=== PATIENT | female | born 1960 | race American Indian/Alaskan Native ===

== ENCOUNTER 2018-04-20 19:09 | Emergency (ER) | payer OTHER ==
[~2018-04-20] VITALS: Ht 165.1 cm; Wt 81.2 kg
[2018-04-20] MEDS ORDERED: COZAAR50 MG PO (19:19)
[2018-04-20] MEDS ORDERED: METFORMIN HCL500 MG PO (19:19)
[2018-04-20] MEDS ORDERED: GLIPIZIDE5 MG PO (19:19)
== END 2018-04-20 19:58 | disposition home or self-care (01) ==
LOC: ED 19:09
PROC: 0HQFXZZ Repair Right Hand Skin, External Approach (ICD-10-PCS; principal; 2018-04-20)
DX: S61.214A Laceration without foreign body of right ring finger without damage to nail, initial encounter (principal); E11.9 Type 2 diabetes mellitus without complications; I10 Essential (primary) hypertension; Z79.899 Other long term (current) drug therapy; Z79.84 Long term (current) use of oral hypoglycemic drugs; W25.XXXA Contact with sharp glass, initial encounter
CPT/HCPCS: 12001; 90471; 90715; 99282

== ENCOUNTER 2023-04-21 14:25 | Emergency (ER) | payer OTHER ==
[~2023-04-21] VITALS: Ht 165.1 cm; Wt 62.4 kg
[~2023-04-21 14:25] MED LIST: COZAAR50 MG PO; GLIPIZIDE5 MG PO; METFORMIN HCL500 MG PO
[2023-04-21 15:11] VITALS: BP 148/98
== END 2023-04-21 15:12 | disposition home or self-care (01) ==
LOC: ED 14:25
DX: S61.411A Laceration without foreign body of right hand, initial encounter (principal); W26.8XXA Contact with other sharp object(s), not elsewhere classified, initial encounter; I10 Essential (primary) hypertension; E11.9 Type 2 diabetes mellitus without complications; Z79.84 Long term (current) use of oral hypoglycemic drugs; Z79.899 Other long term (current) drug therapy
CPT/HCPCS: 99282

== ENCOUNTER 2023-04-25 01:16 | Emergency (ER) | payer OTHER ==
[~2023-04-25] VITALS: Ht 165.1 cm; Wt 68.0 kg
--- OUTSIDE RECORDS SUMMARY | ~2023-04-25 | XMS | Continuity of Care Document ---
Demographics + + + | Address | [address] [place] [address] | | | [place] [id number] | + + + | Preferred Language | Unknown | + + + | Marital Status | Never | + + + | Nondenominational Affiliation | Unknown | + + + | Race | or | + + + | Ethnic Group | Not or | + + + Author + + + | Author | [facility] | + + + | Organization | [facility] | + + + | Address | [address] | | | [place] [address] | + + + | Phone | | + + + Care Team Providers + + + + | Care Power Tool Repairer Name | Role | Phone | + + + + Unavailable | Unavailable | + + + + Unavailable | Unavailable | + + + + Allergies and Intolerances + + + + + | date | description | facility | type | + + + + + | (no date) | No Known Allergies | SAH | (unknown) | | | | | | + + + + + Encounters No information. Functional Status No information. Immunizations + + + + | date | description | facility | + + + + | 2018-04-20 00:00 | Tdap | [facility] | + + + + Medications + + + + | date | description | facility | + + + + | 2023-04-21 00:00 | GLIPIZIDE | [facility] | + + + + | 2023-04-21 00:00 | METFORMIN HCL | [facility] | + + + + | 2023-04-21 00:00 | LOSARTAN POTASSIUM | [facility] | + + + + Problems + + + + | date | description | facility | + + + + | 2018-04-20 00:00 | Laceration of right ring | [facility] | | | finger | | + + + + | 2023-04-21 00:00 | Laceration of right hand | [facility] | + + + + Procedures No information. Results/Labs No information. Social History No information. Vital Signs + + + +---------+ | date | measurement | value | units | + + + +---------+ | 2023-04-21 00:00 | BMI | 22.9 | kg/m2 | + + + +---------+ | 2023-04-21 00:00 | BP_diastolic | 98 | mmHg | + + + +---------+ | 2023-04-21 00:00 | BP_systolic | 148 | mmHg | + + + +---------+ | 2023-04-21 00:00 | heart_rate | 99 | /min | + + + +---------+ | 2023-04-21 00:00 | height_metric | 165.1 | cm | + + + +---------+ | 2023-04-21 00:00 | height_standard | 65 | in | + + + +---------+ | 2023-04-21 00:00 | o2_saturation | 100 | % | + + + +---------+ | 2023-04-21 00:00 | respiration_rate | 16 | /min | + + + +---------+ | 2023-04-21 00:00 | temperature_metric | 36.67 | C | | | | | | + + + +---------+ | 2023-04-21 00:00 | | 98 | F | | | temperature_standar | | | | | d | | | + + + +---------+ | 2023-04-21 00:00 | weight_metric | 62.4 | kg | + + + +---------+ | 2023-04-21 00:00 | weight_standard | 137.57 | lb | + + + +---------+"
--- OUTSIDE RECORDS SUMMARY | ~2023-04-25 | XMS | Continuity of Care Document ---
Demographics + + + | Address | [address] [place] [address] | | | [place] [address] | + + + | Preferred Language | Unknown | + + + | Marital Status | Never | + + + | Mandaeism Affiliation | Unknown | + + + | Race | or | + + + | Ethnic Group | Not or | + + + Author + + + | Author | [facility] | + + + | Organization | [facility] | + + + | Address | [address] | | | [place] [address] | + + + | Phone | | + + + Care Team Providers + + + + | Care Joint Cutter Name | Role | Phone | + [...] + | 2018-04-20 00:00 | Tdap | [facility] | + + + + Medications + + + + | date | description | facility | + + + + | 2023-04-21 00:00 | GLIPIZIDE | [facility] | + + + + | 2023-04-21 00:00 | METFORMIN HCL | [facility] | + + + + | 2023-04-21 00:00 | LOSARTAN POTASSIUM | [facility] | + + + + Problems + + + + | date | description | facility | + + + + | 2018-04-20 00:00 | Laceration of right ring | [facility] | | | finger | | + + + + | 2023-04-21 00:00 | Laceration of right hand | [facility] | + + + + Procedures No [...]
--- OUTSIDE RECORDS SUMMARY | 2023-04-25 01:20 | XMS ---
PreManage Notification: JAZZY TRAN Security Transformation Analyst Events No recent Security Events currently on file CRITERIA MET - [facility] - 2 Visits in 30 Days CARE PROVIDERS There are no care providers on record at this time. Lorin has no Care Guidelines for this patient. Fadumo VISIT COUNT (12 MO.) 2 [facility] TOTAL 2 NOTE: Visits indicate total known visits. ED/UCC VISIT TRACKING (12 MO.) [facility] COMPLAINT: - POSS UTI 04/21/2023 14:26 [facility] [place] TYPE: Emergency COMPLAINT: - R HAND LACERATION INPATIENT VISIT TRACKING (12 MO.) No inpatient visits to display in this time frame [email or web address]
[2023-04-25] MEDS ORDERED: CYCLOBENZAPRINE10 MG PO (03:01)
[2023-04-25] MEDS ORDERED: ONDANSETRON ODT8 MG PO (03:01)
[2023-04-25 04:23] VITALS: BP 130/76
== END 2023-04-25 03:45 | disposition home or self-care (01) ==
LOC: ED 01:16
DX: K52.9 Noninfective gastroenteritis and colitis, unspecified (principal); I10 Essential (primary) hypertension; E11.9 Type 2 diabetes mellitus without complications; Z79.84 Long term (current) use of oral hypoglycemic drugs; Z79.899 Other long term (current) drug therapy
CPT/HCPCS: 36415; 74018; 80053; 81001; 85025; 96361; 96374; 99284 25; A9270; J2405; J7121

== ENCOUNTER 2023-07-22 15:21 | Inpatient (IN) | payer OTHER ==
[~2023-07-22] VITALS: Ht 165.1 cm; Wt 66.4 kg
[~2023-07-22 15:21] MED LIST changes: +CYCLOBENZAPRINE10 MG PO; +GLIPIZIDE XL10 MG PO; -GLIPIZIDE5 MG PO; +METFORMIN HCL1000 MG PO; -METFORMIN HCL500 MG PO; +ONDANSETRON ODT8 MG PO
[2023-07-22 15:51] LABS: BASOPHILS 0.5 % (0-2); EOSINOPHILS 0.6 % (0-6); HEMOGLOBIN 12.1 g/dL (12.0-18.0); LYMPHOCYTES 3.1 % (24-44); MCH 29.9 (27-36); MCHC 33.5 g/dl (30-36); MCV 89.3 fl (81-99); MONOCYTES 6.3 % (0-12); NEUTROPHILS 89.5 % (39-80); PLATELET COUNT 94 K/uL (140-440); RBC 4.03 M/ul (4.3-5.7); RDW 13.4 (10.5-15.0)
[2023-07-22 16:08] LABS: LACTIC ACID, BLOOD 2.3 mmol/L (0.4-2.0)
[2023-07-22 16:10] LABS: ALBUMIN 2.2 g/dL (3.4-5.0); ALBUMIN/GLOBULIN RATIO 0.46 (1.1-2.4); ANION GAP 14.1 (7-21); BILIRUBIN, TOTAL 0.8 ng/dL (0.2-1.0); BUN/CREATININE RATIO 17.07 (6.0-28.6); CALCIUM 8.4 mg/dL (8.5-10.1); CREATININE, SERUM 1.64 mg/dL (0.55-1.02); POTASSIUM 3.1 mmol/L (3.5-5.1)
[2023-07-22 16:18] LABS: INFLUENZA B NAA NEGATIVE (NEGATIVE); RESPIRATORY SYNCYTIAL VIR NAA NEGATIVE (NEGATIVE)
[2023-07-22 18:15] LABS: BILIRUBIN, URINE NEGATIVE (negative); BLOOD/HGB, URINE LARGE (Negative); KETONE, URINE NEGATIVE (Negative); LEUK ESTERASE, URINE TRACE (negative); NITRITE, URINE POSITIVE (negative)
[2023-07-22 18:22] LABS: BACTERIA, URINE 1+ /hpf (negative); CASTS, URINE NONE SEEN \\lpf; COLLECTION TYPE, URINE CLEAN CATCH; CRYSTALS, URINE NONE SEEN (0-1+); EPITHELIAL CELLS, URINE SQUAMOUS 1+ /lpf (0-1+); REFLEX CULTURE, URINE Yes (No); WHITE BLOOD CELLS, URINE 21-40 /HPF (0-5)
--- NOTE | 2023-07-22 19:45 | NUR ---
pt ARRIVED TO [facility] FLOOR, BROUGHT TO FLOOR BY CARMINE HARRIS. pt ORINETED TO ROOM, VS COLLECTED AND CHARTED. PRIMARY RN RAJESH IN ROOM RECEIVING REPORT. IV SITES X2 WNL, SALINE LOCKED. pt ORIENTED TO ROOM, CALL LIGHT IN REACH.
[2023-07-22 19:46] VITALS: BP 131/70
--- NOTE | 2023-07-22 20:00 | NUR ---
pt here from ER, scooted over to bed, vitals taken, hot broth provided, RN in to complete admission
[2023-07-23 02:41] VITALS: BP 149/81
[2023-07-23 04:35] LABS: BASOPHILS 0.6 % (0-2); BUN/CREATININE RATIO 23.52 (6.0-28.6); CALCIUM 7.9 mg/dL (8.5-10.1); CREATININE, SERUM 1.19 mg/dL (0.55-1.02); EOSINOPHILS 0.6 % (0-6); HEMATOCRIT 31.7 % (35.0-50.0); HEMOGLOBIN 10.7 g/dL (12.0-18.0); LYMPHOCYTES 2.8 % (24-44); MCH 29.5 (27-36); MCHC 33.8 g/dl (30-36); MCV 87.5 fl (81-99); MONOCYTES 6.9 % (0-12); NEUTROPHILS 89.1 % (39-80); PLATELET COUNT 90 K/uL (140-440); RBC 3.63 M/ul (4.3-5.7); RDW 13.8 (10.5-15.0)
[2023-07-23 04:47] VITALS: BP 137/78
--- NOTE | 2023-07-23 04:48 | NUR ---
IN TO ASSIST PT TO THE TOILET, SBA WITH IV POLE, BACK TO BED, VS TAKEN
--- NOTE | 2023-07-23 06:23 | NUR ---
MAG ADD ON SHOWS MAGNESIUM RESULT OF 1.8. CALL MADE TO DR DE LEON, TELEPHONE ORDER READ BACK TO GIVE 1 GRAM MAGNESIUM RIDER NOW. PRIMARY RN MADE AWARE. THIS RN TO PLACE ORDER.
--- NOTE | 2023-07-23 07:07 | NUR ---
VERBAL REPORT RECEIVED FROM CARMINE MENA.
--- NOTE | 2023-07-23 07:28 | NUR ---
PT RESTS IN BED AWAKE, RESP EVEN AND UNLABORED, NO REQUESTS AT THIS TIME.
--- NOTE | 2023-07-23 07:33 | NUR ---
REPORT GIVEN TO DAY SHIFT RN. PT RESTING COMFORTABLY IN BED. BREATHING EVEN AND UNLABORED. CALL LIGHT WITHIN REACH. IV FLUIDS INFUSING. SAFETY PRECAUTIONS IN PLACE.
--- NOTE | 2023-07-23 07:36 | NUR ---
spoke to leela in pharmacy regarding magnesium rider, leela to update order and dc original order. pt to receive 1 gram magnesium rider once. primary rn brandon updated and made aware.
--- NOTE | 2023-07-23 08:06 | NUR ---
PT REPORTS 5/10 STOMACH PAIN, CRAMPING. REPORTS SHE IS HUNGRY. DISCUSSED WITH PT THAT A MEAL WAS SCHEDULED TO ARRIVE ANY TIME NOW.
--- NOTE | 2023-07-23 08:46 | NUR ---
IV TO LEFT HAND PAINFUL AND NOT PATENT. IV REMOVED, TIP INTACT, GAUZE AND COBAN DRESSING APPLIED TO SITE. PT TOLERATED WELL. PT AMBULATES WITH STANDBY ASSIST FOR TUBING. PT UP TO TOILET, PASSES LIQUID BM AND SLIGHTLY CLOUDY YELLOW URINE. PT TO RECLINER, MEAL DELIVERED TO PT ROOM, PT EATS. CALL LIGHT IN REACH, NO REQUESTS AT THIS TIME.
--- NOTE | 2023-07-23 09:02 | NUR ---
PATIENT SITTING UP IN RECLINER, EATING BREAKFAST. STATES SHE LIVES IN [place] BUT HAS A RAMP TO GET IN. LIVES ALONE. STATES SHE STILL DRIVES AND HAS NO ISSUES WITH DRIVING. NO DME. STATES SHE DOES NOT HAVE ANY FINANCIAL HARDSHIP. NO ISSUES OBTAINING FOOD OR MEDICTIONS. DENIES NEEDS AT THIS TIME.
--- NOTE | 2023-07-23 09:18 | NUR ---
PT BACK TO BED. EATS ONLY 25% OF BREAKFAST, DENIES NAUSEA. REPORTS HER STOMACH PAIN HAS IMPROVED TO 4/10. ICE WATER PROVIDED PER PT REQUEST. PHYSCIAL ASSESSMENT COMPLETE. TEMPERATURE 99.2F, UP FROM 99F AT 0447.
--- NOTE | 2023-07-23 09:37 | NUR ---
PT REPORTS HEADACHE 02/24, REQUESTS TYLENOL, RECEIVED. ICE PACK PROVIDED PER PT REQUEST. ICE PACK TO FOREHEAD.
[2023-07-23 10:12] VITALS: BP 129/66
--- NOTE | 2023-07-23 10:23 | NUR ---
1017 - WATER TEAM LEADER REPORTS PT'S TEMPERATURE IS 100.2F. DR. DE LEON NOTIFIED VIA PHONE. NEW ORDER RECEIVED TO REPEAT TYLENOL DOSE NOW.
--- NOTE | 2023-07-23 11:07 | NUR ---
EXERCISED MINISTRY OF PRESENCE PT TALKED OF SON AND IMMINENT MEMORIAL SERVICE. PT IS HOPEFUL THAT SHE WILL BE ABLE TO ATTEND SERVICE TOMORROW AFTERNOON. PT CONSENTED TO PRAYER. PRAYED FOR AWARENESS OF DIVINE PRESENCE AND PEACE AND COMFORT.
[2023-07-23] MEDS ORDERED: AVAPRO300 MG PO (11:15)
[2023-07-23] MEDS ORDERED: VITAMIN D350 MCG PO (11:16)
--- NOTE | 2023-07-23 11:19 | NUR ---
PT TEMPERATURE RE-CHECKED, NOW 98.0F.
--- NOTE | 2023-07-23 12:16 | EKG ---
[facility] [address] [facility] [place], [place] [address] Signed Suspect arm lead reversal, interpretation assumes no reversal Sinus tachycardia with frequent premature ventricular complexes Lateral infarct , age undetermined Inferior infarct , age undetermined Abnormal ECG No previous ECGs available Confirmed by ALEXANDRIA DE LEON MD ([id number]) on 07/23/2023 12:16:52 PM Electronically Signed By: ALEXANDRIA DE LEON 07/23/23 1216 PATIENT NAME: ELOY TRANA Electrocardiogram DATE OF : 58 PHYSICIAN: ALEXANDRIA DE LEON REPORT #: [id number] REPORT IS CONFIDENTIAL AND NOT TO BE RELEASED WITHOUT AUTHORIZATION
[2023-07-23] MEDS ORDERED: TYLENOL325 MG PO (12:29)
[2023-07-23] MEDS ORDERED: IBU600 MG PO (12:30)
--- NOTE | 2023-07-23 12:30 | NUR ---
MED REC COMPLETE
--- NOTE | 2023-07-23 14:08 | NUR ---
PT UP TO BATHROOM WITH STANDBY ASSIST. PT VOIDS AND PASSES LIQUID STOOL. PT BRUSHED TEETH IN BATHROOM. PT BACK TO BED, SCDS PUT IN PLACE. EDUCATION ON SCDS PROVIDED TO PT, PT VERBALIZES UNDERSTANDING.
[2023-07-23 14:16] VITALS: BP 131/82
--- NOTE | 2023-07-23 17:09 | NUR ---
PT REPORTS STOMACH AND NECK PAIN 05/27. TYLENOL RECENTLY RECIEVED. PT LAYS IN DARK QUIET ROOM. CALL LIGHT IN REACH, NO REQUESTS AT THIS TIME.
--- NOTE | 2023-07-23 17:55 | NUR ---
PT REPORTS PAIN HAS IMPROVED. REQUESTS LEMON YUHAAVIATAM SODA, ICE AND ICE WATER, PROVIDED. PT DECLINES DINNER.
--- NOTE | 2023-07-23 17:56 | NUR ---
PT RECEIVED FRIST DOSE OF ROCEPHIN THIS AM. BLOOD CX RESULTED, GRAM NEGATIVE RODS. MAGNESIUM AND POTASSIUM INFUSIONS COMPLETED THIS AM. LR CONTINUES TO INFUSE IN IV IN LAC WHICH OFTEN IS OCCLUDED BY PT'S MOVEMENT SINCE SHE IS LEFT HANDED. UNFORTUNATELY THE IV IN HER RIGHT HAND WAS REMOVED TODAY DUE TO PAIN AND LACK OF PATENCY. PT HAS LIQUID BOWL MOVEMENTS, DENIES NAUSEA. TEMPERATURE STEADILY RISES TODAY, HIGH OF 100.2F, REPORTED TO AND TREATED WITH AN EXTRA DOES OF TYLENOL. PT HAS POOR APPETITE AND C/O HEADACH. BLOOD SUGARS 200-300'S TODAY ADDRESSED WITH SLIDING SCALE INSULIN.
[2023-07-23 17:59] VITALS: BP 140/63
--- NOTE | 2023-07-23 18:10 | NUR ---
DR. DE LEON NOTIFIED VIA PHONE OF TEMPERATURE 101.6F, PULSE 127, RESP 18, BP 140/63 AND O2 SAT 98%. DR. DE LEON ADVISES TO CONTINUES MANAGEMENT OF FEVER WITH TYLENOL ORDERED AND ICE.
--- NOTE | 2023-07-23 19:38 | NUR ---
REPORT RECEIVED FROM DAY SHIFT RN. PT LYING IN BED AWAKE AND ALERT. NO SIGNS OF ACUTE DISTRESS. IV FLUIDS INFUSING. NO NEEDS EXPRESSED AT THIS TIME. CALL LIGHT WITHIN REACH. SAFETY PRECAUTIONS IN PLACE.
[2023-07-23 20:49] VITALS: BP 127/72
--- NOTE | 2023-07-23 21:15 | NUR ---
Assisted Pt SBA/Independent from bed to bathroom and back. Gave Pt fresh ice water. Checked Pt's BS, vitals, and I's and O's. Changed Pt's bedding due to being wet from water spill. Call light left in reach. No other needs expressed by Pt.
--- NOTE | 2023-07-23 23:53 | NUR ---
in to assist pt with gown change
--- NOTE | 2023-07-24 00:54 | NUR ---
PT RESTING COMFORTABLY IN BED WITH EYES CLOSED. BREATHING EVEN AND UNLABORED. CALL LIGHT WITHIN REACH. NO SIGNS OF ACUTE DISTRESS. NO NEEDS EXPRESSED AT THIS TIME. SAFETY PRECAUTIONS IN PLACE. IV FLUIDS INFUSING. WILL CONTINUE TO MONITOR.
[2023-07-24 05:17] VITALS: BP 138/83
[2023-07-24 05:18] LABS: BASOPHILS 0.3 % (0-2); EOSINOPHILS 0.5 % (0-6); HEMATOCRIT 31.5 % (35.0-50.0); HEMOGLOBIN 10.7 g/dL (12.0-18.0); MCH 29.7 (27-36); MCHC 33.8 g/dl (30-36); MCV 87.9 fl (81-99); NEUTROPHILS 89.2 % (39-80); PLATELET COUNT 122 K/uL (140-440); RBC 3.59 M/ul (4.3-5.7); RDW 13.4 (10.5-15.0)
[2023-07-24 05:36] LABS: ANION GAP 14.3 (7-21); BUN/CREATININE RATIO 19.44 (6.0-28.6); CALCIUM 8.3 mg/dL (8.5-10.1); CREATININE, SERUM 1.08 mg/dL (0.55-1.02); POTASSIUM 3.3 mmol/L (3.5-5.1)
--- NOTE | 2023-07-24 07:30 | NUR ---
REPORT RECEIVED FROM NIGHT RN - PT RESTING IN BED AWAKE. STATES SHE HAD A "GOOD NIGHT". DENIES NEEDS AT THIS TIME. CALL LIGHT IN REACH.
--- NOTE | 2023-07-24 08:40 | NUR ---
RN IN ROOM TO ADMINISTER SCHEDULED MEDICATIONS AND ASSESS PT. PT FOUND TO BE COMPLAINING OF CHILLS, ORAL TEMP 100.5. PRN TYLENOL ADMINISTERED FOR TEMP AND PAIN 9/10 IN HEAD AND ABD. PT EXPRESSES ANGER TOWARDS NURSE FOR HOSPITAL "NOT EVEN GIVING ME THE RIGHT MEDICATIONS FOR THIS INFECTION I SHOULDNT EVEN NEED TO BE HERE". WHEN EXPLINATION OF ABX DOSING AND INTERVENTIONS FOR INFECTION, WELL SEVERITY OF INFECTION/HEALING TIMELINE PT SAID "YEAH YOU JUST NOW TELL ME LAST NIGHT THE INFECTION WAS IN MY BLOOD". SEVERAL ATTEMPTS WERE MADE TO ASSURE PT THAT THE ABX AND STANDARDS OF CARE FOR HER INFECTION WERE IN EFFECT. PT TELLS THIS RN TO "SHUT THE FUCK UP". PT WAS ASKED TO NOT SPEAK TO RN THIS WAY. PT REQUESTS A CHANGE IN NURSE. BREAKFAST PROVIDED AND TABLE SET UP FOR PT. BUSINESS BANKING REPRESENTATIVE NOTIFIED.
[2023-07-24 09:47] VITALS: BP 151/89
--- NOTE | 2023-07-24 09:47 | NUR ---
EXERCISED MINISTRY OF PRESENCE PT TALKED OF DISAPPOINTMENT IN MISSING SON'S MEMORIAL SERVICE AND OF EXPERIENCES SHE HAD SHARED WITH SON AND THE COMFORT THEY GAVE. REASSURED PT AND PROVIDED PASTORAL CARE. PRAYED FOR PEACE AND COMFORT.
--- NOTE | 2023-07-24 10:51 | NUR ---
RECIEVED REPORT FROM CARMINE CLARK. VEHICLE MAINTENANCE TECHNICIAN, NISHANT, INTRODUCED ME TO THE PT. PT WAS FRIENDLY AND RECEPTIVE. ASKED IF WE HAD KATELIN KNOTT TEA, I LOOKED AND DID NOT HAVE ANY. PT LAID DOWN AND WAS SLEEPING AFTER REPORTING HER IV PUMP BEEPING. REPLACED BAG OF IVF. NO OTHER NEEDS.
[2023-07-24 13:30] VITALS: BP 168/89
--- NOTE | 2023-07-24 13:39 | NUR ---
PT CALLED DUE TO HER IV BEEPING. I WALKED IN THE ROOM, PT BEGAN VOMITING IN BED. SHE STATED "I NEED A NEW DOCTOR" AND "IT WAS THE POTASSIUM". PT GOT UP TO THE BATHROOM WHILE HER BED LINENS WERE CHANGED. FLOOR WAS CLEANED AND HOT PACKS WERE REPLACED. OFFERED COOL CLOTHS FOR HER FACE, SHE DECLINED SAYING "IM JUST SO COLD". TEMP TAKEN, 98.5*, HOWEVER SHE HAD TYLENOL APROX 2 HOURS AGO. LEFT PT RESTING ON HER LEFT SIDE IN BED. ALL PERSONAL BELONGINGS IN REACH AND REMINDED TO CALL IF SHE NEEDS ANYTHING. DISCUSSED POTASSIUM REPLACEMENT WITH DR DE LEON AND AVELINO, PHARMACIST. WE WILL TRY DISOLVABLE POTASSIUM TOMORROW.
--- NOTE | 2023-07-24 14:02 | NUR ---
WENT IN TO ADMINISTER PAIN MEDICATION FOR "9/10" PAIN WHILE MOANING AND CRYING. ADMINISTERED 1MG MSIR IV AND MAXIPINE ANTIBIOTICS. PT STATED SHE HAD A FEVER, RECHECKED HER TEMP, 102.1*. GAVE COOL CLOTHS FOR HER HEAD. EDUCATION PROVIDED ON MEDICATION AND SIDE EFFECTS.
[2023-07-24 18:02] VITALS: BP 135/52
--- NOTE | 2023-07-24 18:55 | NUR ---
PT IV INFILTRATED AT ABOUT 1830. NATE YAO RN ATTEMPTED X2 TO PLACE IV AND NOZZLE WORKERCARMINE DILLARD ATTEMPTED X1. CALLED RN MANAGER BIOLOGICS TO COME PLACE IV. HE PLACED A 22G IN THE R HAND APROX 1854. CHARTED NEW IV.
--- NOTE | 2023-07-24 19:57 | NUR ---
REPORT RECEIVED FROM DAY SHIFT RN. PT LYING IN BED ALERT AND ORIENTED. REPORTS ABD PAIN 10/10. PRN FOR PAIN ADMIN PER EMAR. PT DENIES NAUSEA. NO FURTHER NEEDS. CALL LIGHT IN REACH. WHITE BOARD UPDATED.
[2023-07-24 20:21] VITALS: BP 150/90
--- NOTE | 2023-07-24 20:45 | NUR ---
CALL LIGHT ANSWERED. PT REPORTS NAUSEA AND 10/10 ABD PAIN. NO PRN ORDERS. MD NOTIFIED. NEW TELEPHONE ORDERS RECEIVED VERIFIED WITH READBACK METHOD. PRN FOR LEFT SIDE ABD PAIN AND NAUSEA ADMIN. IV ABX INFUSING PER ORDER. EVENING ASSESSMENT COMPLETE. VS AND I&O OBTAINED. SCD'S IN PLACE. PT DENIES QUESTIONS OR CONCERNS. CALL LIGHT IN REACH.
--- NOTE | 2023-07-24 23:39 | NUR ---
PT RESTING IN BED WITH EYES CLOSED. RESPIRATIONS EVEN. CALL LIGHT IN REACH.
--- NOTE | 2023-07-25 00:54 | NUR ---
CALL LIGHT ANSWERED. PT UP TO BR WITH MINIMAL SBA TO VOID 400 ML CONCENTRATED AND CLOUDY URINE. BACK TO BED, JOHN WELL. REPORTS NAUSEA AND 9/10 LEFT SIDE ABD PAIN THAT RADIATES TO HER BACK. PRN FOR PAIN ADMIN PER EMAR. NO FURTHER NEEDS.
--- NOTE | 2023-07-25 02:34 | NUR ---
PT LYING ON BACK RESTING WITH EYES CLOSED. RESPIRATIONS EVEN. CALL LIGHT IN REACH.
--- NOTE | 2023-07-25 04:00 | NUR ---
CALL LIGHT ANSWERED. PT UP TO BR WITH SBA. BACK TO BED, JOHN FAIRF. REPORTS NAUSEA AND LEFT SIDE ABD PAIN THAT RADIATES TO BACK. REFUSES PRN MORPHINE, PT WISHES TO WAIT FOR PRN TYLENOL WHEN AVAILABLE. PRN N/V ADMIN PER EMAR. ASSESSMENT UNCHANGED. WARM TEA PROVIDED. NO FURTHER NEEDS.
[2023-07-25 06:07] VITALS: BP 148/82
--- NOTE | 2023-07-25 06:11 | NUR ---
PT RESTING WITH EYES CLOSED. AWAKENS EASILY. VS AND I&O OBTAINED. NEW BAG IVF INFUSING PER ORDER. NO NEEDS AT THIS TIME.
--- NOTE | 2023-07-25 07:30 | NUR ---
report from maurisio rn at bedside, pt resting eyes closed on right side, call light in reach. resp even and unlabored.
--- NOTE | 2023-07-25 07:53 | NUR ---
Patient in bed per request, acu check completd. pt has no other request at this time. call light within reach.
[2023-07-25 07:54] LABS: MCV 88.7 fl (81-99)
--- NOTE | 2023-07-25 07:54 | NUR ---
CHANGED ORDER AND CALLED KITCHEN TO ORDER 60 G, LOW SODIUM DIET DUE TO HIGH BS AND DIABETES. BS THIS AM 222.
[2023-07-25 07:58] LABS: HEMATOCRIT 28.9 % (35.0-50.0); HEMOGLOBIN 9.6 g/dL (12.0-18.0); MCH 29.6 (27-36); MCHC 33.3 g/dl (30-36); PLATELET COUNT 157 K/uL (140-440); RBC 3.26 M/ul (4.3-5.7)
[2023-07-25 08:02] LABS: ANION GAP 15.7 (7-21); BUN/CREATININE RATIO 15.45 (6.0-28.6); CALCIUM 8.1 mg/dL (8.5-10.1); CREATININE, SERUM 1.1 mg/dL (0.55-1.02); POTASSIUM 3.7 mmol/L (3.5-5.1)
[2023-07-25 08:19] LABS: BANDS, MANUAL DIFF 6; LYMPHOCYTES, MANUAL DIFF 4; MONOCYTES, MANUAL DIFF 3; NEUTROPHILS, MANUAL DIFF 87
[2023-07-25 09:10] VITALS: BP 147/77
--- NOTE | 2023-07-25 10:35 | NUR ---
dr wade in room with rn for accessment. rn called supervisor stock ranch for us of abd order. concern for abcess on kidney. pt flat affect, abd pain noted.
--- NOTE | 2023-07-25 13:56 | NUR ---
call to dr wade - us report complete from this am.
[2023-07-25 14:12] VITALS: BP 168/89
--- NOTE | 2023-07-25 14:25 | NUR ---
RN ASKED DR DE LEON TO VIEW PT DISCUSS RECENT VITALS, PO TYLENOL GIVEN FOR PAIN/FEVER, PT DEMONSTRATED USE OF ACCAPELLA, IS COUGHS WITH USE. INC. USE TO PREVENT PNEUMONIA. LR FUSING 125, NO NEW ORDERS. DISCUSSED RECENT US RESULTS WITH PT. NEGATIVE FOR RENAL ABCESS.
--- NOTE | 2023-07-25 16:16 | NUR ---
ice pack to head, iv abx fusing, hr continues 112, pt resting denies needs.
--- NOTE | 2023-07-25 16:30 | NUR ---
call to dr wade to update after this rn brainstormed with charge machine operator about pt. fever 100.4 with tylenol, hr 114, hypertensive, and abd pain continues. admit 07/22/23. dr wade ordered labs including lactic and obgyn consult as no uro until wednesday. dr olivares called and updated, as well as helena supervisor of instruction.
[2023-07-25 17:17] LABS: EOSINOPHILS 0.9 % (0-6); HEMATOCRIT 33.6 % (35.0-50.0); LYMPHOCYTES 3.1 % (24-44); MCH 28.9 (27-36); MCHC 32.7 g/dl (30-36); MCV 88.5 fl (81-99); MONOCYTES 5.1 % (0-12); NEUTROPHILS 89.9 % (39-80); PLATELET COUNT 214 K/uL (140-440); RDW 14.1 (10.5-15.0)
[2023-07-25 17:37] VITALS: BP 148/82
[2023-07-25 17:38] LABS: ANION GAP 15.4 (7-21); BUN/CREATININE RATIO 14.28 (6.0-28.6); CALCIUM 8.6 mg/dL (8.5-10.1); CREATININE, SERUM 1.26 mg/dL (0.55-1.02); POTASSIUM 3.4 mmol/L (3.5-5.1)
--- NOTE | 2023-07-25 17:38 | NUR ---
RT COLLECTED RAPID COVID 19 SWAB/ FLU SWAB/ AND RSV SWAB WITH NO COMPLICATIONS AT THIS TIME.
--- NOTE | 2023-07-25 17:38 | NUR ---
dr wade and dr olivares here reviewing chart - re swab for covid, and trans vag us ordered. labor gang supervisor aware and tech called in.
--- NOTE | 2023-07-25 18:52 | NUR ---
dr olivares was in with c rn julieta for pelvic exam, completed and specimen sent to lab - pt tollerated well. pt now up at bedside eating salad, po tylenol given with iv lasix an kcl per dr wade. high pbnp noted.
--- NOTE | 2023-07-25 20:03 | NUR ---
REPORT RECEIVED FROM DAY SHIFT RN. PT LYING IN BED ALERT AND ORIENTED. DINNER TRAY REMOVED. NO C/O PAY OR NAUSEA AT THIS TIME. NO FURTHER NEEDS. CALL LIGHT IN REACH. WHITE BOARD UPDATED.
[2023-07-25 20:21] LABS: N. GONORRRHOEAE BY PCR NOT DETECTED (NOT DETECT)
[2023-07-25 20:27] VITALS: BP 151/84
--- NOTE | 2023-07-25 20:47 | NUR ---
CALL LIGHT ANSWERED. PT UP TO BR WITH MINIMAL SBA TO VOID YELLOW CLOUDY URINE. GAIT STEADY. BACK TO BED, JOHN WELL. EVENING ASSESSMENT COMPLETE. SCHEDULED MEDS ADMIN PER EMAR. PT REPORTS ABD PAIN 03/27. WARM COMPRESS PROVIDED. LUNGS CLEAR. PT CONTINUES WITH PRODUCTIVE COUGH. SpO2 98% ON RA. DENIES NAUSEA. VS AND I&O OBTAINED. TEMP 99.2. PT DENIES QUESTIONS OR CONCERNS. CALL LIGHT IN REACH.
--- NOTE | 2023-07-25 21:59 | NUR ---
IV PUMP ALARMING. ISSUE RESOLVED. IV ABX INFUSING PER ORDER. PT UP TO BR WITH MINIMAL SBA TO VOID. GAIT STEADY. BACK TO BED, JOHN WELL. NO FURTHER NEEDS.
--- NOTE | 2023-07-25 23:18 | NUR ---
PT UP TO BR WITH HOME EXTENSION AGENT ASSIST. REPORTS ABD/BACK PAIN 04/26. PRN FOR PAIN ADMIN PER EMAR. WARM COMPRESS TO ABD. NO FURTHER NEEDS.
--- NOTE | 2023-07-26 02:09 | NUR ---
IV PUMP ALARMING. ISSUE RESOLVED. PT UP TO BR TO VOID. BACK TO BED, JOHN WELL. REPORTS ABD PAIN/NAUSEA. REFUSES PRN FOR PAIN N/V WHEN OFFERED. TEMP 98.8. ASSESSMENT UNCHANGED. NO FURTHER NEEDS.
[2023-07-26 05:04] VITALS: BP 165/93
[2023-07-26 05:27] LABS: MCH 29.4 (27-36)
--- NOTE | 2023-07-26 05:30 | NUR ---
PT UP TO BR TO VOID. BACK TO BED, JOHN WELL. REPORTS ABD PAIN 03/27. PRN FOR PAIN ADMIN PER EMAR. IV ABX INFUSING PER ORDER. PT DENIES NAUSEA. VS AND I&O OBTAINED. NO FURTHER NEEDS. LAB IN ROOM FOR MORNING DRAW.
[2023-07-26 05:36] LABS: ANION GAP 15.8 (7-21); BUN/CREATININE RATIO 13.93 (6.0-28.6); CALCIUM 8.6 mg/dL (8.5-10.1); CREATININE, SERUM 1.22 mg/dL (0.55-1.02); POTASSIUM 3.8 mmol/L (3.5-5.1)
[2023-07-26 05:41] LABS: BASOPHILS 0.4 % (0-2); EOSINOPHILS 0.4 % (0-6); HEMATOCRIT 31.7 % (35.0-50.0); HEMOGLOBIN 10.6 g/dL (12.0-18.0); LYMPHOCYTES 4.8 % (24-44); MCHC 33.4 g/dl (30-36); MCV 88.1 fl (81-99); MONOCYTES 5.4 % (0-12); PLATELET COUNT 257 K/uL (140-440); RBC 3.59 M/ul (4.3-5.7); RDW 13.7 (10.5-15.0)
--- NOTE | 2023-07-26 07:41 | NUR ---
PT RESTING EYES CLOSED AT TIME OF SHIFT REPORT. LEFT UNDISTUBED. CONTINUES RESETING ON HER SIDE EYES CLOSED BREATHING EVEN AND UNLABORED, IV FLUIDS INFUSING WITH ABX. FRESH H20 TO BEDSIDE. CALL LIGHT IN REACH
--- NOTE | 2023-07-26 08:18 | NUR ---
PATIENT UP TO CHAIR, SBA. BLOOD SUGAR DONE. LINENS CHANGED. FRESH GOWN GIVEN. CALL LIGHT IN REACH. NO FURTHER NEEDS AT THIS TIME.
--- NOTE | 2023-07-26 09:26 | NUR ---
PATIENT IS IN THE BATHROOM. CM WILL RETURN LATER TO DO THE PATIENT ASSESSMENT.
[2023-07-26 09:47] VITALS: BP 143/85
--- NOTE | 2023-07-26 09:51 | NUR ---
PT UP INDEPENDANTLY IN THE ROOM. SITTING IN RECLINER CURRENTLY FAMILY PRESENT X2. PT TOELRATES MORNING MEAL DENIES NEED OF OTHER ITEMS. PT REFUSES JUAN PABLO STATED SHE WANTS TO TALD TO THE DOCTOR FIRST
--- NOTE | 2023-07-26 09:52 | NUR ---
PATIENT SITTING UP IN CHAIR AT THIS TIME. VITALS AND I&O'S CHARTED. PATIENT REQUESTED WARM WASHCLOTH AND NEW SOCKS, BOTH PROVIDED. CALL LIGHT IN REACH. NO FURTHER NEEDS AT THIS TIME.
--- NOTE | 2023-07-26 10:27 | NUR ---
PT CALLS REQUESTING LASIX AFTERALL. STATES SHE FEELS LIKE SHE IS SWELLING IN HER FEET, HANDS, AND KNEES. SWELLING OR EDEMA NOT APPARENT TO THIS NURSING UNIT MANAGER. LASIX GIVEN REQUESTED. PT CONTINUES UP IN THE CHAIR AT THIS TIME
--- NOTE | 2023-07-26 10:58 | NUR ---
PT PRESSES CALL LIGHT. PT REQUESTS TO USE BATHROOM. IV POLE UNPLUGGED AND PT INDEPENDENT AND AMBULATORY TO BATHROOM. PT STATES SHE WILL GO BACK TO BED WHEN FINISHED. CLEAN PULL-UP PROVIDED PER PT REQUEST.
--- NOTE | 2023-07-26 14:07 | NUR ---
NURSING STAFF IN ROOM. DID NOT DISTURB. PRAYED SILENTLY FOR MORMON AND BLESSING.
[2023-07-26 14:16] VITALS: BP 129/66
--- NOTE | 2023-07-26 14:29 | NUR ---
PT RESTING IN BED EYES CLOSED
--- NOTE | 2023-07-26 17:17 | NUR ---
WENT BY PATIENT'S ROOM TO DO CAISSON WORKERCRIMINAL JUSTICE DEPARTMENT CHAIR AND PATIENT WAS VISITING WITH FRIENDS. CAISSON WORKER WILL RETURN LATER TO DO THE ASSESSMENT.
--- NOTE | 2023-07-26 17:27 | NUR ---
PT RESTING IN BED EATING EVENING MEAL VISITOR IS PRESENT IN THE ROOM. PT DENIES NEEDS OF
[2023-07-26 18:09] VITALS: BP 143/78
--- NOTE | 2023-07-26 18:14 | NUR ---
IN TO DO VITALS AND I&O'S. VITALS AND I&O'S CHARTED. PATIENT UP TO BATHROOM, SBA. CALL LIGHT IN REACH. NO FURTHER NEEDS AT THIS TIME. RN NOTIFIED OF TEMP.
--- NOTE | 2023-07-26 19:50 | NUR ---
warm pack provided. patient is back in from using the bathroom. emptied hat with 200ml yellow urine. denies further needs at this time.
--- NOTE | 2023-07-26 19:51 | NUR ---
REPORT RECEIVED FROM DAY SHIFT RN. PT LYING IN BED ALERT AND ORIENTED. UP TO BR TO VOID. WARM COMPRESS PROVIDED BY GEOPOLITICS TEACHER. PT DENIES FURTHER NEEDS FROM THIS RN. WHITE BOARD UPDATED. CALL LIGHT IN REACH.
[2023-07-26 21:38] VITALS: BP 169/98
--- NOTE | 2023-07-26 21:48 | NUR ---
VS COMPLETED, I/O WELL. PT HAD CALLED FOR PAIN MEDICATION RELATED TO ABD. DISCOMFORT 05/27, SAYS ALL THE "MEDICATIONS JUST GO TO STOMACH AND IT HURTS". TYLENOL GIVEN. UP TO VOID WELL. FRESH ICE WATER, ALL GARBAGES EMPTIED, ACCUCHECK 173
--- NOTE | 2023-07-26 22:20 | NUR ---
EVENING ASSESSMENT COMPLETE. SCHEDULED MEDS ADMIN PER EMAR. PT DENIES NAUSEA. REPORTS ABD PAIN TOLERABLE AT THIS TIME. IV FLUSHED WITH NS IN PREPARATION FOR IV ABX INFUSION. PT C/O PAIN WITH FLUSH. NO SIGNS OF INFILTRATION. PT AGREEABLE TO NEW IV. THIS RN ATTEMPTED TWICE WITHOUT SUCCESS. SECOND RN IN TO ATTEMPT. PT DENIES QUESTIONS OR CONCERNS. CALL LIGHT IN REACH.
--- NOTE | 2023-07-26 22:45 | NUR ---
NEW IV PLACED TO RAMAN. PT TOLERATED WELL. BRISK BLOOD RETURN NOTED. FLUSHES EASILY. SCHEDULED MEDICATIONS INITIATED ORDERED. PRIMARY RN UPDATED.
--- NOTE | 2023-07-27 01:26 | NUR ---
CALL LIGHT ANSWERED. PT UP TO BR TO VOID 250 ML CLOUDY URINE. GAIT STEADY. BACK TO BED, JOHN WELL. PT REPORTS ABD PAIN 04/26. PRN FOR PAIN ADMIN PER EMAR. WARM COMPRESS PROVIDED FOR LEFT LOWER ABD. NO FURTHER NEEDS.
[2023-07-27 05:17] VITALS: BP 162/86
[2023-07-27 05:36] LABS: HEMATOCRIT 29.6 % (35.0-50.0); HEMOGLOBIN 9.7 g/dL (12.0-18.0); MCH 29.2 (27-36); MCHC 32.8 g/dl (30-36); PLATELET COUNT 353 K/uL (140-440); RBC 3.33 M/ul (4.3-5.7); RDW 13.9 (10.5-15.0)
--- NOTE | 2023-07-27 05:43 | NUR ---
PT UP TO BR WITH SBA TO VOID. BACK TO BED, JOHN WELL. REPORTS ABD PAIN 04/26. PRN FOR PAIN ADMIN PER EMAR. IV ABX INFUSING PER ORDER. VS AND I&O OBTAINED. NO FURTHER NEEDS.
[2023-07-27 05:45] LABS: ANION GAP 14.8 (7-21); BUN/CREATININE RATIO 16.94 (6.0-28.6); CALCIUM 8.1 mg/dL (8.5-10.1); CREATININE, SERUM 1.18 mg/dL (0.55-1.02); POTASSIUM 3.8 mmol/L (3.5-5.1)
[2023-07-27 05:47] LABS: BANDS, MANUAL DIFF 8; LYMPHOCYTES, MANUAL DIFF 9; MONOCYTES, MANUAL DIFF 3; NEUTROPHILS, MANUAL DIFF 80
--- NOTE | 2023-07-27 07:11 | NUR ---
RECEIVED PATIENT REPORT FROM WOUND CARE PHYSICIAN RN.
--- NOTE | 2023-07-27 07:26 | NUR ---
PT RESTING EYES CLOSED AT TIME OF SHIFT REPORT. BREATHING EVEN AND UNLABORED. IV ABX INFUSING, CALL LIGHT IN REACH.
--- NOTE | 2023-07-27 08:03 | NUR ---
PATIENT GIVEN 3 UNITS OF HUMALOG INSULIN. PATIENT STATED SHE WOULD LIKE A SHOWER AFTER BREAKFAST. SUPPLIES ARE SET UP TO DO THAT LATER THIS MORNIG WHEN SHE IS DONE EATING. PATIENT AMBULATED TO THE BATHROOM AFTER HAVING A BOWEL MOVEMENT AND IS BACK TO THE BED. PATIENT STATED NO FURTHER NEEDS AT THIS TIME. PATIENT CALL LIGHT AND PERSONAL BELONGINGS ARE WITHIN REACH.
--- NOTE | 2023-07-27 08:10 | NUR ---
PT AWAKE NOW SITTING ON EDGE OF BED AGREES SHE SLEPT WELL DENIES DISCOMFORTS CURRENTLY. REFUSES LASIX AT THIS TIME STATES IT UPSETS HER STOMACHE, AGREES SHE MIGHT TAKE IT LATER. PT AGREES TO SHOWER AFTER MRONING MEAL.
--- NOTE | 2023-07-27 09:21 | NUR ---
PATIENT AMBULATED TO SHOWER WITH RN AT PATIENTS SIDE. PATIENT IS SALINE LOCKED. PATIENTS BEDDING WAS CHANGED AND THE ROOM PICKED UP. AFTER THE SHOWER THE PATIENTS IV DRESSING REMAINED CLEAN, DRY, AND INTACT. PATIENT SITTING UPRIGHT IN THE RECLINER. CALL LIGHT AND PERSONAL BELONGINGS ARE IN REACH.
[2023-07-27 09:55] VITALS: BP 128/74
--- NOTE | 2023-07-27 10:24 | NUR ---
PT IN GOOD SPIRITS. DENIED NEEDS. EXERCISED MINISTRY OF PRESENCE TALKED OF NATURE AND INTERESTES. GAVE THANKS FOR HEALING AND PRAYED FOR ONGOING HEALING AND ALEVISM OF LIFE.
--- NOTE | 2023-07-27 10:32 | NUR ---
CHARTED ASSESSMENT BY PATRICK LOUISE REVIEWED AND CORRECT
--- NOTE | 2023-07-27 10:34 | NUR ---
PT IS UPBEAT AND INTERACTIVE THIS SHIFT. VERBALIZES UNDERSTANDING OF WBC'S COMING DOWN AND ABX THERAPY EFFECTIVE. SHOWER WELL TOLERATED PT UP INDEPENDANTLY IN ROOM THEN RETURNS TO SITTING IN THE RECLINER. FRESH H20 AND CALL LIGHT AT CHAIRSIDE. PT DENIES FURTHER NEEDS
--- NOTE | 2023-07-27 11:15 | NUR ---
PATIENT AMBULATED TO THE BATHROOM WITH HELP FROM RN WITH THE IV POLE. PATIENT VOIDED 450 ML LIGHT YELLOW URINE. PATIENT AMBULATED BACH TO THE BED AND IS SITTING COMFORTABLY. GOT PATIENT A WARM BLANKET FOR HER FEET. CALL LIGHT AND PERSONAL BELONGINGS WITHIN REACH.
--- NOTE | 2023-07-27 11:30 | NUR ---
Spoke with Soledad. She denies needs. Will go home on dc. She would like a fu appt and this was scheduled with [facility] and added to pts dc. Pt works, drives. 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 Will dc to home when cleared medically.
--- NOTE | 2023-07-27 12:27 | NUR ---
PATIENT AMBULATED TO THE RESTROOM WHILE RN AT THE PATIENTS SIDE. PATIENT VOIDED 400 ML OF LIGHT YELLOW URINE. PATIENT IS NOW SITTING UP ON THE SIDE OF THE BED EATING LUNCH. CALL LIGHT AND PERSONAL BELONGINGS ARE WITHIN REACH.
--- NOTE | 2023-07-27 12:43 | NUR ---
PT SITTING UP FOR NOON MEAL, DENIES NEEDS AT THIS TIME
[2023-07-27 14:07] VITALS: BP 148/83
--- NOTE | 2023-07-27 14:07 | NUR ---
PATIENT STATED THEY WERE FEELING CHILLED. RN CHECKED HER TEMPERATURE AND IT WAS 98F. PATIENT REQUESTED A WARM BLANKET. PATIENT IS NOW LAYING IN BED WITH THE EXTRA BLANKET AND SAID SHE IS FEELING MORE COMFORTABLE. PATIENT STATED NO FURTHER NEEDS AT THIS TIME. PATIENTS CALL LIGHT AND PERSONAL BELONGINGS ARE WITHIN REACH.
--- NOTE | 2023-07-27 14:10 | NUR ---
PATIENT IN BED RESTING AT THIS TIME. VITALS AND I&O'S CHARTED. PATIENT REQUESTING HEAT PACK, HEAT PACK GIVEN. CALL LIGHT IN REACH. NO FURTHER NEEDS AT THIS TIME.
--- NOTE | 2023-07-27 15:07 | NUR ---
PT AGREES SHE IS FEELING BETTER TODAY THAN AT ADMIT. DENIES ANY NAUSEA BUT STATES ABDOMEN HURTS FROM TIME TO TIME. TYLENOL HAS BEEN EFFECTIVE. PT CONTINUES TO GET UP IN THE ROOM INDEPENDANTLY IS EATING WELL AND BM'S HAVE BEEN REGULAR. PT DENIES NEEDS AT THIS TIME HOPES TO GO HOME TOMORROW
--- NOTE | 2023-07-27 16:25 | NUR ---
PATIENT AMBULATED TO THE BATHROOM. VOIDED 300 ML URINE. PATIENT IS BACK IN BED AND LYING DOWN. PATIENT GIVEN A HOT PACK TO HELP WITH THE STOMACH PAIN. PATIENT STATED NO FURTHER NEEDS AT THIS TIME. CALL LIGHT AND PERSONAL ITEMS WITHIN REACH.
[2023-07-27 18:35] VITALS: BP 144/78
--- NOTE | 2023-07-27 18:37 | NUR ---
PATIENT IN BED RESTING AT THIS TIME. VITALS AND I&O'S CHARTED. RN NOTIFIED OF TEMP. CALL LIGHT IN REACH. NO FURTHER NEEDS AT THIS TIME.
--- NOTE | 2023-07-27 19:23 | NUR ---
REPORT RECEIVED FROM DAY SHIFT RN. PT LYING IN BED WITH EYES CLOSED. AWAKENS EASILY. WARM COMPRESS PROVIDED PER REQUEST. NO FURTHER NEEDS. CALL LIGHT IN REACH. WHITE BOARD UPDATED.
--- NOTE | 2023-07-27 19:47 | NUR ---
CALL LIGHT ANSWERED. PT REPORTS DULL LOWER ABD PAIN AND NAUSEA. PRN FOR N/V ADMIN PER EMAR. PT UP TO BR WITH MINIMAL SBA TO VOID. GAIT STEADY. BACK TO BED, JOHN WELL. NO FURTHER NEEDS. CALL LIGHT IN REACH.
--- NOTE | 2023-07-27 20:55 | NUR ---
PT CALLED REQUESTED AND RECEIVED WARM HOT PACK. WHEN RN INTO ROOM PT ON PHONE, STATES THAT WAS SUCH A GOOD CALL, UP TO BATHROOM ONCE IV UNPLUGGED, WILL CALL WHEN BACK TO BED.
--- NOTE | 2023-07-27 21:18 | NUR ---
PT BACK TO BED. REPORTS LOWER ABD/BACK PAIN 05/27. TOO SOON FOR PRN ADMINISTRATION. MD NOTIFIED. TELEPHONE ORDERS RECEIVED VERIFIED WITH READBACK METHOD.
[2023-07-27 21:22] VITALS: BP 150/79
--- NOTE | 2023-07-27 21:41 | NUR ---
EVENING ASSESSMENT COMPLETE. SCHEDULED MEDS ADMIN PER EMAR. PT REPORTS 10/10 LOWER ABD/BACK PAIN. ONE TIME PRN FOR PAIN ADMIN PER EMAR. DENIES NAUSEA. IV ABX INFUSING WNL. PT AFEBRILE AT THIS TIME. BOWEL TONES ACTIVE. ABD SOFT. PT DENIES QUESTIONS OR CONCERNS. CALL LIGHT IN REACH.
--- NOTE | 2023-07-27 23:54 | NUR ---
PT RESTING IN BED WITH EYES CLOSED. RESPIRATIONS EVEN. CALL LIGHT IN REACH.
--- NOTE | 2023-07-28 01:33 | NUR ---
PT RESTING WITH EYES CLOSED. AWAKENS EASILY. IV ABX COMPLETE. MAINTENANCE FLUIDS INFUSING PER ORDER. PT DENIES NEEDS.
--- NOTE | 2023-07-28 02:43 | NUR ---
CALL LIGHT ANSWERED. PT REPORTS ABD/BACK PAIN 04/26. PRN FOR PAIN ADMIN PER EMAR. WARM WATER AND TEA PROVIDED. ASSESSMENT UNCHANGED. PT DENIES FURTHER NEEDS.
--- NOTE | 2023-07-28 04:10 | NUR ---
PT UP TO BR TO VOID 300 ML CLOUDY URINE. GAIT STEADY. BACK TO BED, JOHN WELL. WARM COMPRESS PROVIDED FOR LOWER BACK. NO FURTHER NEEDS.
[2023-07-28 05:38] VITALS: BP 155/86
--- NOTE | 2023-07-28 06:01 | NUR ---
IV ABX INFUSING PER ORDER. PRN ADMIN FOR 6/10 LOWER ABD/BACK PAIN. PT UP TO BR TO VOID AND HAVE SMALL BM. WARM COMPRESS PROVIDED. NO FURTHER NEEDS.
--- NOTE | 2023-07-28 06:36 | NUR ---
IV IN LEFT UPPER ARM NOT PATENT. IV DC'D WNL. TIP INTACT. 22G PLACED IN LEFT FOREARM WITH ONE ATTEMPT. PT JOHN WELL. IV ABX RESUMED.
--- NOTE | 2023-07-28 07:20 | NUR ---
RECEIVED REPORT FROM THE SUPERVISOR FELLING BUCKING RN. PATIENT WAS AWAKE AND STATED NO NEEDS AT THIS TIME. CALL LIGHT AND PERSONAL BELONGINGS ARE WITHIN REACH.
[2023-07-28 09:25] LABS: HEMATOCRIT 29.5 % (35.0-50.0); HEMOGLOBIN 9.8 g/dL (12.0-18.0); MCH 29.5 (27-36); MCHC 33.2 g/dl (30-36); MCV 88.8 fl (81-99); PLATELET COUNT 503 K/uL (140-440); RBC 3.32 M/ul (4.3-5.7); RDW 13.9 (10.5-15.0)
[2023-07-28 09:43] LABS: EOSINOPHILS, MANUAL DIFF 1; LYMPHOCYTES, MANUAL DIFF 12; NEUTROPHILS, MANUAL DIFF 87
--- NOTE | 2023-07-28 10:16 | NUR ---
PATIENT GIVEN PRN DOSE OF TYLENOL FOR PAIN. PATIENT STATED NO FURTHER NEEDS AT THIS TIME. CALL LIGHT AND PERSONAL BELONGINGS ARE WITHIN REACH.
--- NOTE | 2023-07-28 10:34 | NUR ---
PATIENT AMBULATED TO THE RESTROOM TO VOID. URINE COLOR WAS A YELLOW COLOR WITH NO RED TINT. PATIENT STATED SHE HAD SOME TEA THIS MORNING AND THAT MAY HAVE CAUSED THE DISCOLORATION. PATIENT CONNECTED BACK TO IV FLUIDS. LR IS RUNNING AT 125ML/HR. IV DRESSING IS CLEAN, DRY, AND INTACT. PATIENT STATED NO PAIN WHILE FLUSHING. PATIENT SAID THEY HAVE NO FURTHER NEEDS AT THIS TIME. CALL LIGHT AND PERSONAL BELONGINGS ARE WITHIN REACH.
[2023-07-28 10:46] VITALS: BP 157/79
--- NOTE | 2023-07-28 10:50 | NUR ---
PATIENT IN BED RESTING AT THIS TIME. VITALS AND I&O'S CHARTED. WARM WASHCLOTH GIVEN. AM CARE DONE. CALL LIGHT IN REACH. NO FURTHER NEEDS AT THIS TIME.
--- NOTE | 2023-07-28 11:50 | NUR ---
Spoke with Soledad. She denies needs. Updated I have scheduled her a FU appt with Sondra Sims at [facility].
--- NOTE | 2023-07-28 12:24 | NUR ---
PATIENT INSULIN DOSE GIVEN. PATIENT STATED SHE WOULD LIKE A HOT BACK FOR HER BACK. PATIENT STATED SHE NEEDED NO FURTHER NEEDS AT THIS TIME. CALL LIGHT AND PERSONAL BELONGINGS ARE WITHIN REACH.
--- NOTE | 2023-07-28 13:18 | NUR ---
PATIENT IS SITTING UPRIGHT IN BED. LUNCH TRAY WAS CLEARED AND THE PATIENTS SIDE TABLES CLEANED UP. PATIENT GIVEN FRESH ICE WATER. PATIENT STATED NO FURTHER NEEDS AT THIS TIME. CALL LIGHT AND PERSONAL BELONGINGS ARE WITHIN REACH.
[2023-07-28] MEDS ORDERED: LEVOFLOXACIN750 MG PO (13:34)
[2023-07-28 14:34] VITALS: BP 143/86
--- NOTE | 2023-07-28 15:33 | NUR ---
PT TO RESTROOM WITH RED TINGED URINE AND/OR STOOL. CALLED DR CORTES, STATED TO HAVE PT MONITOR AT HOME AND CALL MD OR COME TO ER IF CONTINUED ISSUE. INFORMED PT TO CALL PCP OR COME TO ER IF CONTINUES TO HAVE BLOOD IN URINE AND/OR STOOL. PT VERBALIZED UNDERSTANDING WITH NO FURTHER QUESTIONS.
== END 2023-07-28 16:15 | disposition home or self-care (01) | DRG 872 ==
LOC: ED 15:21 → MS 15:23
PROVIDERS: Internal Medicine; Obstetrics & Gynecology; ADMIT Internal Medicine; ATTEND Family Medicine
DX: A41.50 Gram-negative sepsis, unspecified (principal); N39.0 Urinary tract infection, site not specified; E87.1 Hypo-osmolality and hyponatremia; N17.9 Acute kidney failure, unspecified; Z20.822 Contact with and (suspected) exposure to COVID-19; B96.89 Other specified bacterial agents as the cause of diseases classified elsewhere; I10 Essential (primary) hypertension; N83.8 Other noninflammatory disorders of ovary, fallopian tube and broad ligament; E11.65 Type 2 diabetes mellitus with hyperglycemia; E87.6 Hypokalemia; Z79.84 Long term (current) use of oral hypoglycemic drugs; Z87.19 Personal history of other diseases of the digestive system; Z86.19 Personal history of other infectious and parasitic diseases
CPT/HCPCS: 36415; 51798; 71045; 74176; 74177; 76775; 76830; 80048; 80053; 81001; 83605; 83735; 83880; 85025; 85060; 87040; 87077; 87088; 87186; 87502; 93005; 93010; 96361; 96367; 96375; 96376; 99285-25; A9270; C9803; G0378; J0692; J0696; J1450; J1650; J1815; J1940; J2185; J2270; J2405; J2543; J3475; J3480; J7030; J7040; J7121; U0002

== ENCOUNTER 2024-04-17 12:50 | Inpatient (IN) | payer BC, OTHER ==
[~2024-04-17] VITALS: Ht 165.1 cm; Wt 64.2 kg
--- NOTE | ~2024-04-17 | EKG ---
[facility] [address] [facility] [place], [place] [address] Draft EK completed, results pending confirmation PATIENT NAME: JAZZY TRAN Electrocardiogram DATE OF : 58 PHYSICIAN: PRELIMINARY REPORT #: [id number] REPORT IS CONFIDENTIAL AND NOT TO BE RELEASED WITHOUT AUTHORIZATION
[~2024-04-17 12:50] MED LIST changes: +AVAPRO300 MG PO; +IBU600 MG PO; +LEVOFLOXACIN750 MG PO; +TYLENOL325 MG PO; +VITAMIN D350 MCG PO
--- OUTSIDE RECORDS SUMMARY | 2024-04-17 12:51 | XMS ---
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 Lorin has no Care Guidelines for this patient. [facility] V[facility] COUNT (12 MO.) [facility] TOTAL 6 NOTE: Visits indicate total known visits. ED/[facility] VISIT TRACKING (12 MO.) 04/17/2024 12:50 [facility] [place] TYPE: Emergency COMPLAINT: - HEADACHE 03/27/2024 10:49 [facility] (Francheska Pritchard) TYPE: Emergency DIAGNOSES: - Urinary tract infection, site not specified - abd pain - Fatigue 11/22/2023 09:14 [facility] [place] TYPE: Emergency COMPLAINT: - R HAND WEAK AND UNCONTROLLABLE DIAGNOSES: - Essential (primary) hypertension - terminologist (current) use of oral hypoglycemic drugs - Other terminal operations manager (current) drug therapy - Type 2 diabetes mellitus with diabetic polyneuropathy - Weakness 07/22/2023 15:22 [facility] [place] TYPE: Emergency COMPLAINT: - RAPID HEART RATE 04/25/2023 01:18 [facility] [place] TYPE: Emergency COMPLAINT: - POSS UTI DIAGNOSES: - Essential (primary) hypertension - snf (current) use of oral hypoglycemic drugs - Noninfective gastroenteritis and colitis, unspecified - Other terminal operations manager (current) drug therapy - Type 2 diabetes mellitus without complications - Unspecified abdominal pain 04/21/2023 14:26 [facility] [place] TYPE: Emergency COMPLAINT: - R HAND LACERATION DIAGNOSES: - Contact with other sharp object(s), not elsewhere classified, initial encounter - Essential (primary) hypertension - Laceration without foreign body of right hand, initial encounter - terminologist (current) use of oral hypoglycemic drugs - Other chcf (current) drug therapy - Type 2 diabetes mellitus without complications INPATIENT VISIT TRACKING (12 MO.) 07/24/2023 11:33 [facility] [place] TYPE: Medical Surgical COMPLAINT: - UTI DIAGNOSES: - Acute kidney failure, unspecified - Acute kidney failure, unspecified - Bacteremia - Contact with and (suspected) exposure to COVID-19 - Contact with and (suspected) exposure to COVID-19 - Essential (primary) hypertension - Essential (primary) hypertension - Gram-negative sepsis, unspecified - Gram-negative sepsis, unspecified - Hypo-osmolality and hyponatremia - Hypo-osmolality and hyponatremia - Hypokalemia - Hypokalemia - terminologist (current) use of oral hypoglycemic drugs - snf (current) use of oral hypoglycemic drugs - Other noninflammatory disorders of ovary, fallopian tube and broad ligament - Other noninflammatory disorders of ovary, fallopian tube and broad ligament - Other specified bacterial agents as the cause of diseases classified elsewhere - Other specified bacterial agents as the cause of diseases classified elsewhere - Personal history of other diseases of the digestive system - Personal history of other diseases of the digestive system - Personal history of other infectious and parasitic diseases - Personal history of other infectious and parasitic diseases - Type 2 diabetes mellitus with hyperglycemia - Type 2 diabetes mellitus with hyperglycemia - Urinary tract infection, site not specified [email or web address]
[2024-04-17] MEDS ORDERED: MACROBID 100 M100 MG PO (13:25)
[2024-04-17] MEDS ORDERED: SODIUM CHLORIDE 0.9% 1,000 ML IV PRN (14:00)
[2024-04-17 15:00] LABS: BASOPHILS 0.5 % (0-2); EOSINOPHILS 0.6 % (0-6); HEMATOCRIT 24.8 % (35.0-50.0); HEMOGLOBIN 8.3 g/dL (12.0-18.0); LYMPHOCYTES 9.3 % (24-44); MCH 27.7 (27-36); MCHC 33.5 g/dl (30-36); MCV 82.8 fl (81-99); MONOCYTES 9.8 % (0-12); NEUTROPHILS 79.8 % (39-80); PLATELET COUNT 365 K/uL (140-440)
[2024-04-17 15:24] LABS: ALBUMIN 2.7 g/dL (3.4-5.0); ALBUMIN/GLOBULIN RATIO 0.55 (1.1-2.4); ANION GAP 16.9 (7-21); BILIRUBIN, TOTAL 0.4 ng/dL (0.2-1.0); BUN/CREATININE RATIO 17.47 (6.0-28.6); CALCIUM 9.1 mg/dL (8.5-10.1); CREATININE, SERUM 2.06 mg/dL (0.55-1.02); MAGNESIUM 1.9 mg/dL (1.8-2.4); POTASSIUM 3.9 mmol/L (3.5-5.1); PROTEIN, TOTAL 7.6 g/dL (6.4-8.2); TSH, 3RD GENERATION 0.985 uIU/mL (0.358-3.740)
[2024-04-17 17:05] LABS: BILIRUBIN, URINE NEGATIVE (negative); BLOOD/HGB, URINE LARGE (Negative); KETONE, URINE NEGATIVE (Negative); LEUK ESTERASE, URINE NEGATIVE (negative); NITRITE, URINE NEGATIVE (negative); PH, URINE 5.5 (5-7)
[2024-04-17 17:12] LABS: BACTERIA, URINE RARE /hpf (negative); CASTS, URINE GRANULAR 1+ \\lpf; COLLECTION TYPE, URINE CLEAN CATCH; CRYSTALS, URINE NONE SEEN (0-1+); EPITHELIAL CELLS, URINE SQUAMOUS 1+ /lpf (0-1+); REFLEX CULTURE, URINE Yes (No)
[2024-04-17 19:43] VITALS: BP 152/80
[2024-04-17] MEDS ORDERED: ondansetron HCL 4 MG/2 ML VIAL IV PRN (20:30)
[2024-04-17] MEDS ORDERED: ACETAMINOPHEN 500 MG TAB PO PRN (20:30)
[2024-04-17] MEDS ORDERED: SODIUM CHLORIDE 0.9% 1,000 ML IV SCH (22:00)
[2024-04-18] VITALS (9 sets, daily range): BP systolic 123–154; BP diastolic 63–78
[2024-04-18 05:59] LABS: BASOPHILS 0.5 % (0-2); EOSINOPHILS 1.1 % (0-6); HEMATOCRIT 28.2 % (35.0-50.0); HEMOGLOBIN 9.2 g/dL (12.0-18.0); LYMPHOCYTES 8.6 % (24-44); MCH 27.6 (27-36); MCHC 32.5 g/dl (30-36); MCV 84.8 fl (81-99); MONOCYTES 10.4 % (0-12); NEUTROPHILS 79.4 % (39-80); PLATELET COUNT 390 K/uL (140-440); RBC 3.32 M/ul (4.3-5.7); RDW 13.6 (10.5-15.0)
[2024-04-18 06:21] LABS: ANION GAP 12.9 (7-21); BUN/CREATININE RATIO 16.57 (6.0-28.6); CALCIUM 9.2 mg/dL (8.5-10.1); CHOLESTEROL/HDL RATIO 5.3; CREATININE, SERUM 1.81 mg/dL (0.55-1.02); POTASSIUM 3.9 mmol/L (3.5-5.1)
[2024-04-18] MEDS ORDERED: NITROFURANTOIN MONOHYD MACROCR 100 MG CAP PO SCH (08:00)
[2024-04-18] MEDS ORDERED: ASPIRIN 81 MG CHEW PO SCH (08:00)
[2024-04-18] MEDS ORDERED: CLOPIDOGREL BISULFATE 75 MG TAB PO SCH (09:00)
[2024-04-18] MEDS ORDERED: CEPHALEXIN MONOHYDRATE 500 MG CAP PO SCH (09:00)
[2024-04-18] MEDS ORDERED: PHARMACY RENAL DOSE ADJUSTMENT 1 DOSE MISC PO SCH (12:00)
[2024-04-18] MEDS ORDERED: GLUCAGON,HUMAN RECOMBINANT 1 MG/ML VIAL SUB-Q PRN (16:30)
[2024-04-18] MEDS ORDERED: DEXTROSE 5% 1,000 ML IV PRN (16:30)
[2024-04-18] MEDS ORDERED: DEXTROSE 50% 50 ML SYR IV PRN ×2 (16:30)
[2024-04-18] MEDS ORDERED: IBLOOD GLUCOSE TEST STRIP 1 EA TEST XX PRN (16:30)
[2024-04-18] MEDS ORDERED: Insulin Regular, Human 100 UNIT/ML ML SUB-Q SCH (17:00)
[2024-04-18] MEDS ORDERED: IBLOOD GLUCOSE TEST STRIP 1 EA TEST XX SCH (17:00)
[2024-04-19 01:42] VITALS: BP 131/71
[2024-04-19 01:58] VITALS: BP 131/71
[2024-04-19 05:35] VITALS: BP 136/78
[2024-04-19 05:37] VITALS: BP 136/78
[2024-04-19 09:30] VITALS: BP 145/75
[2024-04-19 11:17] VITALS: BP 145/75
[2024-04-19] MEDS ORDERED: ASPIRIN81 MG PO (12:30)
[2024-04-19] MEDS ORDERED: CEPHALEXIN500 MG PO (12:30)
[2024-04-19] MEDS ORDERED: CLOPIDOGREL75 MG PO (12:30)
[2024-04-19] MEDS ORDERED: LIPITOR80 MG PO (12:33)
== END 2024-04-19 13:22 | disposition home or self-care (01) | DRG 65 ==
LOC: ED 12:50 → MS 18:55
PROVIDERS: Emergency Medicine; ADMIT Internal Medicine; ATTEND Internal Medicine
DX: I63.9 Cerebral infarction, unspecified (principal); N17.9 Acute kidney failure, unspecified; N39.0 Urinary tract infection, site not specified; E11.9 Type 2 diabetes mellitus without complications; I10 Essential (primary) hypertension; J45.909 Unspecified asthma, uncomplicated; Z98.890 Other specified postprocedural states; E78.5 Hyperlipidemia, unspecified; Z79.82 Long term (current) use of aspirin; Z79.899 Other long term (current) drug therapy; Z79.84 Long term (current) use of oral hypoglycemic drugs
CPT/HCPCS: 36415; 70450; 70544; 70549; 80048; 80053; 80061; 81001; 83036; 83735; 84443; 84484; 85025; 87088; 92523; 93306; 97161; 97165; A9270; A9579; J1815; J2405; J7030